=== PATIENT | female | born 1980 | race Caucasian/White ===

== ENCOUNTER 2017-11-25 09:30 | Outpatient (RCR) | payer MEDICAID, SELFPAY ==
--- NOTE | 2017-11-02 07:56 | HP.PTEVAL ---
Patient's Visit Information ANN GILBERT is a 37 year old F referred to Physical Therapy by Anderson Zurita with a diagnosis of . Date of Evaluation: 11/02/17 Physical Therapist: Yareli Anguiano - Visit Plan Frequency: 2x /Week Duration: 4 Weeks Plan: Aquatic- focus on core s/s- patient fatigues easily secondary to chemo for breast cancer (current) - Subjective Subjective: Is doing hormone replacement therapy for breast cancer- she is having back pain so they did a CT Scan- everything was clear. Seeing a chiropractor 2x a week for 1.5 months- on a 2 week break- was getting better but now hurts again- manipulation and ice. Back pain started 3 months ago- insidious onset. Back pain and chemo drugs came at the same time. Pain in along the low back on the right side. Describes as sharp when she got home from work but normally dull and irritating. Pain goes down the right leg- occasionally along the hamstrings- just to the knee. No N/T in the toes. Treatment- couple of months of chemo- drips into a port (30 min). Pain aggravated by: sitting, working, moving. Worst: 7/10 Best: 0/10 Eases: ice, lay on the floor on her back. Work: in room dining server- carrying heavy trays. Has extreme fatgiue. December 06- implant put in with a reduction on the other side. Breast cancer on the right side- Invasive ductual carcinoma- was not staged due to being hormone driven. Sleep: not disturbed. PMHx: Breast Cancer Meds: chemo, hormone replacements, zoloft, cyclobenzoprine, xanex. - Objective Posture: FH, RS, Increased kyphosis. Gait:no deviation noted. Stairs:asc/desc 8 recip with 1 HR. Balance: 15 sec without LOB. ROM: WNL in all planes- but reports pain and stiffness with lumbar rotation and forward flexion. Strength: Core: poor, Hip: 4/5, Knee: 5/5, Ankle: 5/5. Special Test: pelvic alignment: left ASIS higher than right. Palpation: tender along gluts on the right side. Repeated extn: no change in s/s - Goals Goal 1:: Patient will be I with HEP and progression Goal Time Frame: 4-6 Weeks Goal 2:: Patient will maintain proper posture t/o tx session to demo increased core s/s. Goal Time Frame: 4-6 Weeks Goal 3:: Patient will maintain proper pelvic alignment for 1 week Goal Time Frame: 4-6 Weeks - Rehabilitation Potential Physical Therapy Diagnosis: Patient presents with hypomobility- she had poor pelvic alignment and decreased core s/s leading to increased pain Rehabilitation Potential: Fair - Anticipated Interventions Patient/Client Instruction: Educate patient on: Benefits of Fitness Program For the Purpose of:: To increase tolerance to activity/condition/position Therapeutic Exercise to Include: Strength training, Endurance training, Body mechanics, Postural training, Flexibilty training, In an aquatic setting, Dynamic Lumbar Stabilization, Scapular Strength/Stabilization For the Purpose of:: To improve muscle performance and motor function Thank you for the opportunity to evaluate your patient. For Medicare and Medicare HMO plans, please review the plan of care and approve it. It will need to be FAXED BACK to us at [phone] for Medicare purposes. Please let me know if there are questions or concerns regarding this plan of care. Physician Signature: Date:
--- NOTE | 2018-03-07 10:43 | HP.PTDCSUM_ITS ---
HP - PT D/C Summary It has been my pleasure to treat ANN GILBERT under orders from Anderson Zurita , for the diagnosis of for a total of 8 visit(s). Discharge Date: Please see the following information for a summary of their discharge status. - Subjective Subjective: pt has not had a rest or time to exercise d/t having family in from out of town. - Pain LBP Pain Intensity (Out of 10): 6 - Objective Objective/Function: pt is having surgery in 2 weeks. One more visit w/ PT next week. - Goals Goal 1:: Patient will be I with HEP and progression Goal 2:: Patient will maintain proper posture t/o tx session to demo increased core s/s. Goal 3:: Patient will maintain proper pelvic alignment for 1 week - Plan Plan: Cont w/ POC. - D/C Information If there are questions or concerns regarding this patient's physical therapy, please feel free to call me at [phone]. Thank you for the referral of this patient. Sincerely, Yareli Anguiano
== END 2017-11-25 19:00 | disposition home or self-care (01) ==
LOC: PT 09:30
PROVIDERS: Family Provider Family Medicine; PCP Family Medicine; Visit Provider Internal Medicine Hematology & Oncology
DX: M54.5 Low back pain (principal); G89.29 Other chronic pain; C50.811 Malignant neoplasm of overlapping sites of right female breast; Z17.0 Estrogen receptor positive status [ER+]
CPT/HCPCS: 97113; 97162

== ENCOUNTER 2018-07-28 11:19 | Day surgery (SDC) | payer MEDICAID, SELFPAY ==
[2018-07-22 11:26] LABS: Hematocrit 35.4 % (37-47); Hemoglobin 11.6 g/dl (12.0-15.0); Mean Corp Hgb Conc 32.8 g/gl (32-36); Mean Corpuscular Hgb 28.9 pg (27.0-32.0); Mean Corpuscular Volume 88.3 fL (81-99); Mean Platelet Vol. 9.6 fl (6.2-12.0); Platelet Count 300 K/mm3 (150-450); RBC Distribution Width SD 40.9 fl (35.1-43.9); Red Blood Count 4.01 M/mm3 (4.2-5.4); White Blood Count 6.3 K/mm3 (4.4-11.0)
[2018-07-22 11:30] LABS: Scan Indicated on CBC? Y/N NO
[2018-07-28] VITALS (11 sets, daily range): BP systolic 101–122; BP diastolic 70–93; PULSE 47–81; RESP 16–18; TEMP 36–36.4; O2SAT 91–100; BMI 34.2
[2018-07-28 11:36] LABS: Internal QC Validated? YES +Cl - CLEAR BKGD
[2018-07-28 11:37] LABS: Pregnancy, Urine Negative Negative
--- NOTE | 2018-07-28 13:24 | PCM.DC.TUB ---
Discharge Diet: No Restrictions, - - Increase fluid intake for 48 hours. Discharge Activity: Return to Normal Activity, May Drive - when you are no longer taking narcotic pain medications., May Shower, May Take a Tub Bath - in 7 days., - - Ambulate often the next week after surgery. May resume sexual activity in: 2 weeks Lifting Restrictions: 25 Additional Activity Instructions:: Nothing in the vagina for the next 5 days. Call your doctor if your incision/area has: Continuous Slow Oozing, Sudden Increased Bleeding, Increased Pain/ Swelling, Increased Redness, Foul Smelling Discharge, Swelling at the incision site Call your doctor if you observe: Fever of 101 or Higher Cleanse incision/area with: - - you have skin glue over incision sites- do not pick off. ok to let soap and water run over incisions. dab dry. Allergies/Adverse Reactions: Allergies sulfamethoxazole [From Bactrim] Allergy (Verified 07/21/18 11:58) Hives trimethoprim [From Bactrim] Allergy (Verified 07/21/18 11:58) Hives latex Adverse Reaction (Verified 07/21/18 11:58) yeast infections from condoms Penicillins Adverse Reaction (Verified 07/21/18 11:58) yeast infections GETS YEAST INFECTION Medications to take at Discharge Anastrozole [Arimidex] 1 mg PO DAILY 11/04/17 Cyclobenzaprine [Flexeril] 10 mg PO TID PRN PRN 11/04/17 Sertraline HCl [Zoloft] 100 mg PO DAILY 11/04/17 Senna/Docusate Sodium [Senokot-S] 2 tab PO DAILY PRN #60 tab 11/06/17 DiphenhydrAMINE [Benadryl] 50 mg PO QHS 07/21/18 Loperamide [Imodium] 4 mg PO DAILY 07/21/18 Neratinib Maleate [Nerlynx] 160 mg PO DAILY 07/21/18 Docusate Sodium [Colace] 200 mg PO DAILY PRN PRN 07/28/18 Primary Care Physician: Joni Moser MD [Primary Care Provider] - Test Results: Test results from this visit will be discussed in further detail at your follow-up appointment, if applicable. Please Follow Up With: Kristin Hinton MD When: 2 weeks post op as scheduled.
[2018-07-28] MEDS: Bupivacaine Mpf 0.5% 30 ML VIAL (14:00)
--- NOTE | 2018-07-28 14:03 | PCM.OP.BLANK ---
Operative Report Date of Procedure: 07/28/18 Surgeon: Dr. Kristin Hinton Fuel Cell Engineer: Elvia Lorenz MD Preoperative diagnosis: Prophylactic BSO, Estrogen receptor + breast cancer, BRCA negative Procedure performed: laparoscopic BSO Postoperative diagnosis: same complications: None Estimated blood loss: 5cc Drains: none Specimens collected: Bilateral tubes and ovaries Findings: Normal tubes and ovaries bilaterally uterus sounded to approximately 7cm. Anesthesia: general Implantable devices: None Fluids: 1000cc Operative note: After informed consent was obtained patient was taken to the operating room she was placed in supine position she was given anesthesia. She was then placed in the [facility] stirrups and she was prepped and draped in normal sterile fashion. Bladder was drained prior to the start of procedure approximately 50cc of clear yellow urine was expelled. At this time attention was turned to the vaginal portion where weighted speculum placed at posterior fornix vagina single-tooth tenaculum was used to gently grasp the internal the cervix. uterus was gently sounded to approximately 7cm. Uterine manipulator was placed without difficulty. Legs then placed in parallel with the abdomen the tenaculum and the weighted speculum were removed. 2 towel clamps were placed superior to umbilicus. After Marcaine was injected superior to umbilicus a small incision was made and a 5 mm trocar was placed under direct visualization. CO2 gas was used to insufflate the intra-abdominal cavity. Upon inspection no gross abnormalities uterus tubes and ovaries appeared to be normal. At this time then the LLQ port was placed again Marcaine was injected small incision was made a knife and the 10 mm trocar was placed. this was repeated on right side with 5mm trochar. At this time then tubes were traced back to the fimbriated ends. Ligasure was used to coagulate and ligate along IP ligament, uteroovarian and the mesosalpinx bilaterally until ovaries and tubes removed completely. Good hemostasis was appreciated. endocatch bag placed in LLQ- specimens collected and removed. The isabella holman was then used to closed fascia of LLQ incision using 0-vicryl sutre. At this time procedure was deemed complete successful. The gas was desufflated on from the intra-abdominal cavity. The trochars were removed. Skin was closed using 4-0 Monocryl in a subcutaneous fashion. Dermabond glue was placed. Instrument lap and needle counts were correct ?2. The uterine manipulator was removed. Vaginal sweep was performed it was negative. There were no complications anticipated normal postoperative course for this patient.
[2018-07-28] MEDS: HYDROcodone Bitartrate/Apap 5/325 Tablet PO (17:05)
--- NOTE | 2018-07-29 | OV_PTH ---
PATIENT: ANN GILBERT LOC: [facility] U#:[id number] AGE/SX: 37/F ROOM: RE07/28/[address]: Dr. Kristin Hinton, MDDOB: 1980 BED: DIS: 07/28/2018 SPEC #: [id number] RECD: 07/29/18 10:07 STATUS: RAMY ONI #: [id number] JI: 07/29/18 00:[address]: Kristin Hinton DEPT: SURGICAL PATHOLOGY RECD BY: Carter He ENTERED: 07/29/18 10:08 SP TYPE: OVARY OTHR DR: Dr. Joni Moser MD Tissues: Ovary, NOS Procedures: Surgery Specimen Level IV HEADER OPERATION: Laparoscopic bilateral salpingo-oophorectomy PRE-OP DIAGNOSIS: Personal history of ER positive breast cancer TISSUE SUBMITTED: Bilateral fallopian tubes and ovaries MICROSCOPIC DIAGNOSIS Bilateral fallopian tubes and ovaries, bilateral salpingo-oophorectomy: Bilateral fallopian tube - no pathologic diagnosis. Bilateral ovaries ? physiologic follicular cysts. SUYAPA:emery 08/02/18 MICROSCOPIC DESCRIPTION Slides are reviewed. GROSS DESCRIPTION Received in fixative is one container labeled with the patient's name and designated right and left fallopian tubes and ovaries. The specimen consists of two ovaries with attached fallopian tubes. The ovaries are not designated. One ovary measures 3.5 x 2.4 x 1 cm. Serial sections of this ovary reveal multiple cysts containing clear to bloody fluid. The cysts range in size from 0.1 to 1 cm in greatest dimension. The adjacent fallopian tube measures 6 cm in length and 0.7 cm in average diameter. No tubo-ovarian adhesions are seen and a normal fimbriated end is present. The second ovary measures 4 x 3.5 x 1.5 cm. Serial sections of this ovary reveal multiple cysts containing clear to bloody fluid. The cysts range in size from 0.7 to 2 cm in greatest dimension. The adjacent fallopian tube measures 6 cm in length and 0.7 cm in average diameter. No tubo-ovarian adhesions are seen and a normal fimbriated end is present. Boot Maker sections are submitted in six cassettes as follows: 1 & 2 ? one ovary and fallopian tube, 3-6 ? the other ovary and fallopian tube. / AM:emery 07/29/18 TC:4 CPT: 34198 x2
== END 2018-07-28 18:26 | disposition home or self-care (01) ==
LOC: SDC 11:23 → AC 11:24
PROVIDERS: Family Provider Family Medicine; PCP Family Medicine; Visit Provider Obstetrics & Gynecology
DX: N83.02 Follicular cyst of left ovary (principal); N83.01 Follicular cyst of right ovary; C50.911 Malignant neoplasm of unspecified site of right female breast; F43.23 Adjustment disorder with mixed anxiety and depressed mood; Z87.891 Personal history of nicotine dependence; Z79.2 Long term (current) use of antibiotics; Z79.01 Long term (current) use of anticoagulants; Z79.891 Long term (current) use of opiate analgesic; Z79.899 Other long term (current) drug therapy
CPT/HCPCS: 00840; 58661; 36415; 81025; 85027; 88305; J7120; J2405

== ENCOUNTER 2018-08-10 21:05 | Observation (INO) | payer MEDICAID, SELFPAY ==
[2018-08-10 21:06] VITALS: BP 125/71; PULSE 89; RESP 17; TEMP 36.2; O2SAT 100; BMI 33.7
--- NOTE | 2018-08-10 21:37 | CT_ITS ---
STUDY: CT ABDOMEN AND PELVIS WITH CONTRAST REASON FOR EXAM: Female, 37 years old. Postop lower abdominal pain x2 weeks, elevated WBCs, nausea and vomiting today. History of hypertension, breast cancer with chemotherapy, IBS, hormone therapy, right partial mastectomy, status post oophorectomy 2 weeks ago. RADIATION DOSAGE (If Supplied By Facility): CTDIvol = ( 21.66 ) mGy, DLP = ( 1355.06 ) mGycm TECHNIQUE: Transaxial 3.75 mm images were obtained from the dome of the diaphragm to the symphysis pubis with oral contrast. 100 ml of Isovue 300 contrast was administered. Sagittal and coronal images were reconstructed. Individualized dose optimization techniques were used for this CT. COMPARISON: CT abdomen pelvis 04 November 2017. FINDINGS: The visualized lung bases are unremarkable. The visualized portions of the heart are within normal limits. Prior right breast implant. Normal liver. Normal gallbladder and extrahepatic biliary system. Normal spleen. Normal pancreas. Normal bilateral adrenal glands. Normal right kidney. Normal left kidney. There is contrast distention of the stomach and oral contrast in the very proximal duodenum. No other oral contrast noted in the small bowel. Stable mild hiatal hernia. Distal small bowel obstruction with dilatation and fecalization of the distal small bowel just prior to the wall thickened decompressed terminal ileum with abrupt caliber change image 90 series 2, image 55 series 601, image 59 series 602 cm similar degree on previous exam. Decompressed colon with retained fecal material in the rectum and mid transverse colon. Stable fatty colonic wall. There is hyperattenuation in the lumen which may be due to dense food particles or appendicolith. Normal abdominal aorta. Normal inferior vena cava. Few left para-aortic lymph nodes, less than 1.5 cm in size, slightly more pronounced when compared to the most recent exam. Normal urinary bladder. Normal visualized uterus. There is stable mild pelvic fluid. Ovaries are not visualized. Normal abdominal wall. Age-appropriate osseous structures. CT/Abdomen/Pelvis WITH Contrast IMPRESSION: Small bowel obstruction along the terminal ileum likely partial, seen to similar degree on previous examination. Changes involving the terminal ileum possibly due to inflammatory bowel disease. There is no appendicitis, colitis, diverticulitis, ascites, abscess, collection, perforation or obstruction. Fatty intestinal wall thickening is seen with recurrent inflammation, inflammatory bowel disease, due to nutritional intake and lifestyle changes. Electronically Signed: Catrina Echeverria MD at 0:49 EDT , Service support ,
--- NOTE | 2018-08-10 21:45 | ED.DCSUM_ITS ---
- ER Visit Summary Date of Service: 08/10/18 Chief Complaint: Abdominal pain, nausea and vomiting History of Present Illness: The patient is a 37 F increasing lower abdominal pain nausea and vomiting since this morning. Vomited ?2. No hematemesis. Normal bowel movements. Patient is 13 days postop bilateral salpingo- oophorectomy by Dr. Guadarrama. She did previous diagnosed breast cancer 2016 with elective surgical procedure. States was doing well up until today. 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 Subjective fevers chills and sweats. No urinary symptoms. Physical Examination: General: Alert and oriented ?3, mild distress however is given IV placement HEENT: Normocephalic, atraumatic. Moist mucosa membranes Neck: supple, nontender. Cardiovascular: Regular rate and rhythm, no murmurs Respiratory: Normal breath sounds, symmetric, no distress Abdomen: Soft, lower quadrant tenderness without guarding or rebound, nondistended. Laparoscopic incisions clean, dry, intact. Extremities: Nontender, no edema, pulses intact ?4 Neuro: no focal neurological deficits. Test Results: White count 14.6, hemoglobin 13.5. Creatinine 0.7. Lipase normal liver enzymes normal coags normal. CT scan abdomen pelvis with contrast : Pending final read, mild wet read concerns for dilated appendix with stranding concerning for appendicitis. No pelvic abnormalities. Emergency Department Course and Treatment: Patient 13 days postop, lower abdominal discomfort. Workup initiated to rule out postop infection. Labs no white count 14.6. History of Dilaudid Zofran IV fluids. Pending final read of CT with contrast, my evaluation however concerns for dilated appendix with stranding in that region. Reevaluation she is having more pain suprapubic right -sided, no guarding or rebound. Her pain was returning therefore treatment additional Dilaudid was given. Her last meal was at 4 PM. She has been seen by Dr. Yusuf in the past with a port placement for breast cancer. She would like to see her. Discussed with Dr. Austin over the phone, she will be admitted under her service. Cefotan was started IV in the ED. Treatment Plan: [] Disposition: Admission Impression: 1. Acute appendicitis 2. Abdominal pain This note was generated with [employer] dictation software. It may contain incorrect words, spelling, and punctuation that were not noted in review of the chart prior to signing ED Disposition - Plan for ED Patient: Disposition: [facility] Chief Complaint: Abd Pain Diagnosis: Acute appendicitis, Abdominal pain Referrals: Joni Moser MD [Primary Care Provider] -
[2018-08-10] MEDS: Ondansetron 4 MG/2 ML Vial IV (21:48)
[2018-08-10] MEDS: 0.9% Normal Saline 1,000 ML 1000 ML IV (21:48)
[2018-08-10] MEDS: HYDROmorphone 1 MG/ML Syringe IV ×2 (21:49→23:57)
[2018-08-10 21:57] LABS: Mucous, Urine 0 SEEN /hpf (<or=2+)
[2018-08-10 22:02] LABS: Absolute Lymphocyte Count 1.67 X10^3/ul (0.83-4.51); Absolute Neutrophil Count 12.4 X10^3/uL (2.0-7.7); Basophil# 0.02 X10^3/uL; Basophil% 0.1 % (0-1); Eosinophil# 0.01 X10^3/uL; Eosinophils% 0.1 % (0-5); Hematocrit 39.1 % (37-47); Hemoglobin 13.5 g/dl (12.0-15.0); Lymphocyte # 1.67 X10^3/ul (4.0); Lymphocyte % 11.5 % (19-41); Mean Corp Hgb Conc 34.5 g/gl (32-36); Mean Corpuscular Hgb 29.3 pg (27.0-32.0); Mean Corpuscular Volume 84.8 fL (81-99); Mean Platelet Vol. 9.1 fl (6.2-12.0); Monocyte# 0.47 X10^3/uL; Monocyte% 3.2 % (0-10); Neutrophil # 12.36 X10^3/uL (2.7-7.7); Platelet Count 386 K/mm3 (150-450); RBC Distribution Width CV 13.2 % (11.6-14.6); RBC Distribution Width SD 40.6 fl (35.1-43.9); Red Blood Count 4.61 M/mm3 (4.2-5.4); White Blood Count 14.6 K/mm3 (4.4-11.0)
[2018-08-10 22:04] LABS: POSITIVE COUNT NO; POSITIVE DIFFERENTIAL NO; POSITIVE MORPHOLOGY NO
[2018-08-10 22:10] LABS: Color, Urine Yellow (Yellow); Glucose, Dipstick Normal (Normal); Ketone-Dipstick 5 mg/dl (Negative); Leukocyte Esterase-Dipstick 25 /ul (Negative); Nitrite-Dipstick Negative (Negative); Occult Blood-Urine Negative /ul (Negative); Protein-Dipstick Negative (Negative); Urine Bilirubin Dipstick Negative (Negative); Urine Clarity Sl. Cloudy (Clear); Urine Urobilinogen Normal (Normal)
[2018-08-10 22:11] LABS: International Normalized Ratio 0.9; Partial Thromboplast Time 25.5 Seconds (24.1-36.2); Prothrombin Time (Protime)PT. 12.5 SECONDS (11.7-14.9)
[2018-08-10 22:27] LABS: AST(SGOT) 15 U/L (15-37); Alanine Aminotransfer ALT/SGPT 25 U/L (13-56); Albumin, Serum 4.3 g/dL (3.2-5.0); Alkaline Phosphatase 126 U/L (45-117); Anion Gap 13 (5-15); BUN 14 mg/dL (7-18); BUN/Creat Ratio 18.4 RATIO (10-20); Bilirubin, Direct 0.08 mg/dL (0.00-0.30); Calcium,Total 9.6 mg/dL (8.5-10.1); Chloride 101 mmol/L (98-107); Creatinine, Serum 0.76 mg/dL (0.55-1.02); EST Glomerular Filtration Rate 91 mL/min (>60); Est Glom Filt Rate - Afr Amer 110 mL/min (>60); Estimated Creatinine Clearance 83.84 ml/min; Globulin 4.2 g/dL (2.2-4.2); Glucose 121 mg/dL (74-106); Lipase 113 U/L (73-393); Potassium 3.4 mmol/L (3.5-5.1); Protein, Total 8.5 g/dL (6.4-8.2); Sodium Level 136 mmol/L (136-145)
[2018-08-10 22:40] LABS: Amorphous Sediment 2+; Bacteria 1+ /hpf (None Seen); Red Blood Cells-Urine 0-5 SEEN /hpf (0-5); Squamous Epithelial Cells - UA 0-5 SEEN /hpf (5-10); White Blood Cells 0-5 SEEN /hpf (0-5)
[2018-08-10] MEDS: 0.9% Normal Saline 1,000 ML 150 ML IV (23:17)
[2018-08-11 00:30] VITALS: BP 134/87; PULSE 71; RESP 18; TEMP 36.7; O2SAT 96
[2018-08-11 00:45] VITALS: BMI 33.7; BMI 34.1
[2018-08-11 00:54] VITALS: BP 117/80; PULSE 67; RESP 18; TEMP 36.6; O2SAT 97; BMI 34.1
[2018-08-11] MEDS: Morphine 4 MG/ML Syringe IV ×5 (01:20→09:28)
[2018-08-11] MEDS: 0.9% NaCl Peripheral Flush Adult/Peds IV ×6 (01:20→17:08)
[2018-08-11] MEDS: Lactated Ringers 1,000 ML 100 ML IV ×2 (04:01→17:07)
[2018-08-11 05:51] VITALS: BP 120/68; PULSE 82; RESP 18; TEMP 37.1; O2SAT 98
[2018-08-11] MEDS: Ondansetron 4 MG/2 ML Vial IV (07:49)
--- NOTE | 2018-08-11 08:03 | HP.PCM_ITS ---
History and Physical Date of Admission: 08/11/18 Val Baptiste 1980 CHIEF COMPLAINT: abdominal pain HPI: The patient is a 37 y/o WF who presents with sudden onset of abdominal pain yesterday evening. Building up over the day, with worsening abdominal pain, accompanied by nausea and emesis. Denies fevers. Presented to ED, found to have elevated WBC of 14K. Also, thickened terminal ileum, normal appendix and gallbladder, possible dilated bowel - by CT scan. Re-reviewed by Dr. Renteria - more like terminal ileitis presentation. Patient denies antecedent diarrhea. Passing flatus. Did feel bloated upon initial admission, but states that she does not feels bloated presently. Had possible Crohn's in high school - diagnosed with this and treated for a year on medications, but then symptoms abated and she stopped medications. She was then diagnosed with irritable bowel syndrome, underwent colonoscopy January 2018, random mucosal biopsies revealed no evidence of colitis, etc. Patient is two weeks s/p bilateral salpingo-oopherectomy. She states that she had some left lower quadrant abdominal pain since surgery, albeit, improving. States that the present abdominal pain is different from the postoperative pain. At present, she states that she feels slightly improved, has bilateral lower abdominal crampy pain. PAST MEDICAL HISTORY Irritable bowel syndrome history of right breast cancer s/p mastectomy and reconstruction PAST SURGICAL HISTORY COLONOSCOPY 2017 right breast mastectomy right breast reconstruction with prosthesis bilateral salpingo-oopherectomy placement of portacath, removal of portacath PAST INJURIES Denies head injuries, denies history of fractures Current Outpatient Prescriptions: ibuprofen (MOTRIN) 600 mg tablet diphenhydramine HCl (BENADRYL ALLERGY ORAL) nitrofurantoin monohydrate and macrocrystal (MACROBID) 100 mg capsule diphenoxylate-atropine (LOMOTIL) 2.5-0.025 mg per tablet anastrozole (ARIMIDEX) 1 mg tablet ascorbic acid, vitamin C, (VITAMIN C) 500 mg tablet neratinib 40 mg tab heparin 100 unit/mL injection sertraline (ZOLOFT) 50 mg tablet ALLERGIES: latex, penicillin (gives her yeast infections), sulfa PERSONAL HISTORY: Social History Marital Status: Single Social History Main Topics Smoking Status:quit 3 years vasyl Alcohol Use: Yes Comment: 6 beers per week Drug Use: Yes Comment: previously marijuana FAMILY HISTORY Alcohol/Drug Father Diabetes Father Other [Other] [OTHER] Mother Comment: brain aneurysm at 43 No breast or ovarian cancer known in family. REVIEW OF SYSTEMS: General - denies fevers, denies weight loss, denies anorexia Cardiovascular - denies chest pain, denies history of heart attack Pulmonary - occasional shortness of breath with exertion, has seasonal allergies , denies coughing up blood Gastrointestinal - see HPI, has irritable bowel syndrome with fecal urgency, denies blood in stools, denies history of peptic ulcers Neurological - has bilateral carpal tunnel symptoms, denies seizures, denies history of stroke Genitourinary - denies blood in urine, denies burning with urination Hematological - denies spontaneous/prolonged bleeding, denies history of blood transfusions, denies history of deep venous thromboses and/or pulmonary emboli Skin - denies nonhealing skin wounds, denies history of skin cancer Musculoskeletal - denies chronic joint pain Endocrine - denies diabetes Psychological denies hallucinations PHYSICAL EXAMINATION: General: The patient is 35 year old female, well nourished, well hydrated in no acute distress. The patient is oriented to time, place, and person. VITALS: Blood pressure 122/86, pulse 76, resp. rate 16. Head Normocephalic. EOM intact with sclera clear and no icterus noted. Wearing glasses. Mouth with mucus membranes moist. Neck - supple with no jugular venous distention noted. Trachea is midline. Chest/breast right breast reconstruction Lungs clear to auscultation. Normal breath sounds. No rales/rhonchi/wheezing noted. No labored breathing noted, such as retractions. No cough heard. Heart normal S1 and S2 auscultated. No rubs/clicks/murmurs noted. Regular rate.Normal size and location by auscultation. Abdomen soft and benign, tender in lower abdomen - at present left is greater than right - no peritoneal signs. Normal bowel sounds. No abdominal bruits noted. No distention or tympany noted Extremities no calf tenderness noted. No pitting edema noted. Skin normal skin integrity. Neurological cranial nerves II-XII intact. Normal motor strength in arms and legs. No localized numbness detected. Psych calm and appropriate RADIOLOGIC STUDIES: As Noted IMPRESSION: small bowel ileitis PLAN: I have discussed the above with the patient. No surgical indications at the point in time. Will treat empirically with antibiotics, bowel rest - clear liquid diet. Will need colonoscopy in near future - outpatient. I have answered all questions to the patients satisfaction and the patient has no further questions.
[2018-08-11] MEDS: Ketorolac 30 MG/ML Syringe IV ×2 (10:17→17:07)
[2018-08-11 13:41] VITALS: BP 112/73; PULSE 56; RESP 18; TEMP 36.5; O2SAT 100
[2018-08-11] MEDS: HYDROcodone Bitartrate/Apap 5/325 Tablet PO ×3 (13:51→20:27)
[2018-08-11 20:00] VITALS: BP 109/80; PULSE 63; RESP 16; TEMP 36.4; O2SAT 99
[2018-08-11] MEDS: Temazepam 15 MG Capsule PO (20:58)
[2018-08-11] MEDS: Pantoprazole Sodium 20 MG Tablet PO (20:58)
[2018-08-12] MEDS: Ketorolac 30 MG/ML Syringe IV ×4 (00:21→18:54)
[2018-08-12] MEDS: Lactated Ringers 1,000 ML 100 ML IV ×3 (00:21→21:50)
[2018-08-12 02:30] VITALS: BP 112/66; PULSE 73; RESP 16; TEMP 36.8; O2SAT 99
[2018-08-12 08:31] VITALS: BP 127/73; PULSE 77; RESP 20; TEMP 36.5; O2SAT 97
[2018-08-12] MEDS: Pantoprazole Sodium 20 MG Tablet PO (10:59)
[2018-08-12 13:05] VITALS: BP 130/87; PULSE 81; RESP 18; TEMP 37.1; O2SAT 100
[2018-08-12 17:05] VITALS: BP 125/73; PULSE 75; RESP 18; TEMP 36.6; O2SAT 99
[2018-08-12] MEDS: Morphine 4 MG/ML Syringe IV (18:54)
[2018-08-12] MEDS: Ondansetron 4 MG/2 ML Vial IV (19:02)
[2018-08-12] MEDS: HYDROcodone Bitartrate/Apap 5/325 Tablet PO (20:20)
[2018-08-12 20:21] VITALS: BP 125/76; PULSE 61; RESP 16; TEMP 36.3; O2SAT 100
--- NOTE | 2018-08-12 20:49 | NURSING ---
Patient up and ambulating in hallway at this time with .
[2018-08-13] MEDS: Ketorolac 30 MG/ML Syringe IV ×3 (00:08→11:32)
[2018-08-13] MEDS: Temazepam 15 MG Capsule PO (00:13)
[2018-08-13 00:15] VITALS: BP 97/63; PULSE 80; RESP 16; TEMP 36.5; O2SAT 98
--- NOTE | 2018-08-13 00:37 | NURSING ---
Patient up and ambulating in hallways at this time.
[2018-08-13 06:08] VITALS: BP 119/76; PULSE 72; RESP 16; TEMP 37.4; O2SAT 98
[2018-08-13 08:35] VITALS: BP 115/81; PULSE 71; RESP 18; TEMP 36.9; O2SAT 100
--- NOTE | 2018-08-13 09:35 | PCM.PN.BLA ---
Progress Note This note is for the date of 08/12/18 Progress note: 08/12/18 Patient states that she feels improved, but still with lower abdominal crampy pain Has passed flatus, no bowel movement as of this morning Does not feel hungry, but did later in the day Examination: AF VSS Abdomen is soft, seems distended (but patient denies bloating), no peritoneal signs Impression: terminal ileitis Plan: I will try to place a call to one of the gastroenterologists with regard to management of this presentation of terminal ileitis Will continue present therapy
[2018-08-13] MEDS: Pantoprazole Sodium 20 MG Tablet PO (09:45)
[2018-08-13] MEDS: Lactated Ringers 1,000 ML 100 ML IV (09:46)
--- NOTE | 2018-08-13 12:26 | PCM.PN.SRG ---
Patient Problems: Active and Suspected Problems Abdominal pain (Acute) Subjective: patient feels improved, had flatus and a bowel movement, wants to go home - Physical Exam General: Alert, Oriented x3 Oral: Moist Mucosa Neck: Supple Abdomen: Bowel Sounds Present, Soft Vital Signs Temp Pulse Resp BP Pulse Ox 98.5 F 71 18 115/81 H 100 08/13/18 08:35 08/13/18 08:35 08/13/18 08:35 08/13/18 08:35 08/13/18 08:35 Oxygen Delivery Method Room Air Weight: 87.4 kg Body Mass Index (BMI) 34.1 Intake and Output for Last 24 Hours 08/11/18 08/12/18 08/13/18 23:59 23:59 23:59 Intake Total 2988 / 2988 4558 / 4558 826 / 826 Output Total 2 / 2 400 / 400 Balance 2986 / 2986 4158 / 4158 826 / 826 Medical Necessity - Tobacco Use Smoking Status: Never smoker Assessment/Plan All Active Problems Acute appendicitis (Acute) Abdominal pain (Acute) Acute colitis (Acute) Impression: - probable terminal ileitis - rule out Crohn's - will set up patient for colonoscopy this coming week Plan: would like to start treatment empirically for patient's still with complaint of crampy lower abdominal pain, however, sulfasalzine is drug of choice and patient is allergic to sulfa will get diagnosis from colonoscopy later this week discharge to home
--- NOTE | 2018-08-13 12:34 | DCINST_ITS ---
Discharge Diet: No Restrictions - drink plenty of fluids, avoid high fiber diet prior to colonoscopy Discharge Activity: Return to Normal Activity Additional Instructions: Will plan on colonoscopy (time to be determined) on Aug 18 clear liquid diet all day on Aug 17 - no red colored items - coffee/tea OK, no dairy products begin drinking Golytely in the late afternoon, time at your convenience, try to drink the entire amount within 2 hours Nothing to eat or drink after midnight on Aug 17 Office will contact you with time, thank you Allergies/Adverse Reactions: Allergies sulfamethoxazole [From Bactrim] Allergy (Verified 08/10/18 21:05) Hives trimethoprim [From Bactrim] Allergy (Verified 08/10/18 21:05) Hives latex Adverse Reaction (Verified 08/10/18 21:05) yeast infections from condoms Penicillins Adverse Reaction (Verified 08/10/18 21:05) yeast infections GETS YEAST INFECTION Medications to take at Discharge Anastrozole [Arimidex] 1 mg PO DAILY 11/04/17 Cyclobenzaprine [Flexeril] 10 mg PO TID PRN PRN 11/04/17 Sertraline HCl [Zoloft] 100 mg PO DAILY 11/04/17 DiphenhydrAMINE [Benadryl] 50 mg PO QHS 07/21/18 Loperamide [Imodium] 4 mg PO DAILY PRN 07/21/18 Neratinib Maleate [Nerlynx] 160 mg PO DAILY 07/21/18 Peg 3350/Na Sulf,Bicarb,Cl/KCl [Golytely Solution] 4,000 ml PO X1 #1 soln.recon 08/13/18 The following prescriptions were given: Peg 3350/Na Sulf,Bicarb,Cl/KCl [Golytely Solution] 4,000 ml PO X1 #1 soln.recon Primary Care Physician: Joni Moser MD [Primary Care Provider] - Test Results: Test results from this visit will be discussed in further detail at your follow- up appointment, if applicable. Please Follow Up With: Marita Yusuf MD - for colonoscopy When: Aug 18, time to be determined
[2018-08-13 13:54] VITALS: BP 122/81; PULSE 74; RESP 18; TEMP 36.6; O2SAT 100
--- NOTE | 2018-08-14 17:52 | PCM.DC.BLA ---
Discharge Summary Date of Admission: 08/10/18 Date of Discharge: 08/13/18 Summary: Val Baptiste is a 37 y/o WF who presented with right lower quadrant abdominal pain to [facility] ED. Initially thought to be appendicitis and patient admitted to my service. However, radiologist read CT scan (late at night) and findings of terminal ileitis and ileus. Patient given IV hydration, empirically treated with antibiotics, bowel rest and pain medications. Pain medications decreased and patient given IV toradol instead later in hospitalization. Patient initially had obstipation and constipation but this resolved after two days. Patient was tolerating diet, passing flatus and had bowel movements by HD#3. She still had lower abdominal crampy pain but it was greatly decreased upon discharged. She will follow up for outpatient colonoscopy.
--- NOTE | 2018-08-14 17:56 | DS.PCM_ITS ---
Discharge Summary Date of Admission: 08/10/18 Date of Discharge: 08/13/18 Summary: Val Baptiste is a 37 y/o WF who presented with right lower quadrant abdominal pain to [facility] ED. Initially thought to be appendicitis and patient admitted to my service. However, radiologist read CT scan (late at night) and findings of terminal ileitis and ileus. Patient given IV hydration, empirically treated with antibiotics, bowel rest and pain medications. Pain medications decreased and patient given IV toradol instead later in hospitalization. Patient initially had obstipation and constipation but this resolved after two days. Patient was tolerating diet, passing flatus and had bowel movements by HD#3. She still had lower abdominal crampy pain but it was greatly decreased upon discharged. She will follow up for outpatient colonoscopy.
== END 2018-08-13 13:15 | disposition home or self-care (01) ==
LOC: ED 08-11 00:15 → MS3 08-11 00:34
PROVIDERS: Admitting Provider Surgery; Emergency Provider Emergency Medicine; Family Provider Family Medicine; PCP Family Medicine; Visit Provider Surgery
DX: K50.00 Crohn's disease of small intestine without complications (principal); K59.00 Constipation, unspecified; Z79.899 Other long term (current) drug therapy; Z85.3 Personal history of malignant neoplasm of breast; Z87.891 Personal history of nicotine dependence
CPT/HCPCS: 74177; 80048; 80076; 81001; 83690; 85025; 85610; 85730; 86850; 86900; 96361; 96365; 96366; 96367; 96375; 96376; 97802; 99218; 99283; J7030; J7120; Q9967; A4216; G0378; J2405